=== PATIENT | male | born 1970 | race Caucasian/White ===

== ENCOUNTER 2020-10-01 15:32 | Emergency (ER) | payer OTHER ==
[2020-10-01] MEDS ORDERED: EPINEPHrine 1 MG/ML SDV IM ONE (15:33)
[2020-10-01] MEDS ORDERED: diphenhydrAMINE 50 MG/ML SDV IVPUSH ONE (15:34)
[2020-10-01] MEDS ORDERED: Sodium Chloride 0.9% 10 ML Syringe FLUSH PRN (15:34)
[2020-10-01] MEDS ORDERED: methylPREDNISolone Sodium Succinate 125 MG/2 ML SDV IVPUSH ONE (15:34)
[2020-10-01 16:11] VITALS: BP 170/111; PULSE 99
--- NOTE | 2020-10-01 16:46 | EDM.PDOC ---
Scribed by Renée Singh 10/01/20 [id number] for Ky Garcia MD ED HPI GENERAL MEDICAL PROBLEM - General Chief Complaint: Allergic Reaction Stated Complaint: ALLERIC REACTION Time Seen by Provider: 10/01/20 15:34 Source of Information: Reports: Patient, RN, RN Notes Reviewed History Limitations: Reports: No Limitations - History of Present Illness INITIAL COMMENTS - FREE TEXT/NARRATIVE: Patient presents to ED by POV from [facility] with complaint of allergic reaction, tightness and scratchy throat that began shortly after accidentally taking a bite of fish. Patient states that he ordered a Brad sandwich with corn beef and was accidentally served a walleye Brad. 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 Denies any difficulty breathing. Denies rash or hives. - Related Data Allergies Allergy/AdvReac Type Severity Reaction Status Date / Time Penicillins Allergy Swelling Verified 10/01/20 15:57 fish Allergy Anaphylactic Uncoded 10/01/20 15:57 Shock Home Meds: Home Meds traZODone 200 mg PO BEDTIME 11/05/15 [History] Past Medical History Respiratory History: Reports: Asthma Genitourinary History: Reports: None Musculoskeletal History: Reports: None Endocrine/Metabolic History: Reports: None Immunologic History: Reports: Other (See Below) (Food Allergy/Anaphylaxis: FISH) - Past Surgical History GI Surgical History: Reports: Appendectomy Male Surgical History: Reports: Other (See Below) Other Male Surgeries/Procedures: testicular tortion Endocrine Surgical History: Reports: Other (See Below) Other Endocrine Surgeries/Procedures: thyroid lump removed as child Other Musculoskeletal Surgeries/Procedures:: right shoulder and elbow surgery Social & Family History - Family History Family Medical History: No Pertinent Family History - Caffeine Use Caffeine Use: Reports: None - Living Situation & Occupation Living situation: Reports: , with Spouse ED ROS ALLERGIC REACTION - Review of Systems Review Of Systems: Comprehensive ROS is negative, except as noted in HPI. ED EXAM GENERAL NO PERIP PULSE - Physical Exam Exam: See Below Exam Limited By: No Limitations General Appearance: Alert, WD/WN, No Apparent Distress Eye Exam: Bilateral Eye: Normal Inspection (No swelling or redness) Ears: Normal External Exam, Normal Canal, Hearing Grossly Normal, Normal TMs Nose: Normal Inspection, Normal Mucosa, No Blood Throat/Mouth: Normal Inspection, Normal Lips, Normal Teeth, Normal Gums, Normal Oropharynx, Normal Voice, No Airway Compromise, Other (No swelling or angioedema) Head: Atraumatic, Normocephalic Neck: Normal Inspection, Supple, Non-Tender, Full Range of Motion. No: Lymphadenopathy (L), Lymphadenopathy (R) Respiratory/Chest: No Respiratory Distress, Lungs Clear, Normal Breath Sounds, No Accessory Muscle Use, Chest Non-Tender. No: Rales, Rhonchi, Wheezing Cardiovascular: Normal Peripheral Pulses, Regular Rate, Rhythm, No Edema, No Gallop, No JVD, No Murmur, No Rub GI/Abdominal: Normal Bowel Sounds, Soft, Non-Tender Extremities: Normal Inspection Neurological: Alert, Oriented, Normal Cognition, No Motor/Sensory Deficits Psychiatric: Normal Affect, Normal Mood Skin Exam: Warm, Dry, Intact, Normal Color, No Rash Course - Vital Signs Last Recorded V/S: Last Vital Signs Temp 99 F 10/01/20 15:32 Pulse 99 10/01/20 15:32 Resp 20 10/01/20 15:32 BP 170/111 H 10/01/20 15:32 Pulse Ox 96 10/01/20 15:32 - Orders/Labs/Meds Orders: Active Orders 24 hr Category Date Time Status Peripheral IV Care [RC] . DIRECTED Care 10/01/20 15:34 Active Sodium Chloride 0.9% [Saline Flush] Med 10/01/20 15:34 Active 10 ml FLUSH ASDIRECTED PRN Peripheral IV Insertion Adult [OM.PC] Stat Oth 10/01/20 15:34 Ordered Medication Orders Sodium Chloride (Sodium Chloride 0.9% 10 Ml Syringe) 10 ml FLUSH ASDIRECTED PRN PRN Reason: Keep Vein Open Last Admin: 10/01/20 15:34 Dose: 10 ml Documented by: ANYA Meds: Medications Generic Name Dose Route Start Last Admin Trade Name Freq PRN Reason Stop Dose Admin Sodium Chloride 10 ml 10/01/20 15:34 10/01/20 15:34 Sodium Chloride 0.9% 10 Ml Syringe FLUSH 10 ml ASDIRECTED PRN Administration Keep Vein Open Discontinued Medications Generic Name Dose Route Start Last Admin Trade Name Freq PRN Reason Stop Dose Admin Diphenhydramine HCl 25 mg 10/01/20 15:34 10/01/20 15:40 Diphenhydramine 50 Mg/Ml Sdv IVPUSH 10/01/20 15:35 25 mg ONETIME ONE Administration Epinephrine HCl 0.3 mg 10/01/20 15:33 10/01/20 15:32 Epinephrine 1 Mg/Ml Sdv IM 10/01/20 15:34 0.3 mg ONETIME ONE Administration Methylprednisolone Sodium Succinate 125 mg 10/01/20 15:34 10/01/20 15:43 Methylprednisolone Sodium Succinate 125 Mg/2 Ml Sdv IVPUSH 10/01/20 15:35 125 mg ONETIME ONE Administration - Re-Assessments/Exams Free Text/Narrative Re-Assessment/Exam: 10/01/20 16:38 Pt feels completely resolved on reassessment. Departure - Departure Time of Disposition: 16:45 Disposition: Home, Self-Care 01 Condition: Good Clinical Impression: Food allergy - Discharge Information *PRESCRIPTION DRUG MONITORING PROGRAM REVIEWED*: Not Applicable *COPY OF PRESCRIPTION DRUG MONITORING REPORT IN PATIENT NASH: Not Applicable Instructions: Food Allergy Forms: ED Department Discharge Additional Instructions: Do eat fish! Return to ER if worse at any time. Sepsis Event Note (ED) - Focused Exam Vital Signs: Vital Signs Temp Pulse Resp BP Pulse Ox 10/01/20 15:32 99 F 99 20 170/111 H 96 - My Orders Last 24 Hours: My Active Orders 10/01/20 15:34 Peripheral IV Care [RC] . DIRECTED Sodium Chloride 0.9% [Saline Flush] 10 ml FLUSH ASDIRECTED PRN Peripheral IV Insertion Adult [OM.PC] Stat - Assessment/Plan Last 24 Hours: My Active Orders 10/01/20 15:34 Peripheral IV Care [RC] . DIRECTED Sodium Chloride 0.9% [Saline Flush] 10 ml FLUSH ASDIRECTED PRN Peripheral IV Insertion Adult [OM.PC] Stat I have read and agree with the documentation that has been completed regarding this visit. By signing this record, I attest that the documentation was co mpleted in my physical presence and is an accurate record of the encounter.
== END 2020-10-01 17:18 | disposition home or self-care (01) ==
LOC: DL.ED 15:32
DX: T78.1XXA Other adverse food reactions, not elsewhere classified, initial encounter (principal); J45.909 Unspecified asthma, uncomplicated; Z88.0 Allergy status to penicillin; Z91.013 Allergy to seafood
CPT/HCPCS: 96374; 96375; 99283; J0171; J1200; J2930; 96372

== ENCOUNTER 2022-01-02 00:52 | Emergency (ER) | payer OTHER ==
[2022-01-02] MEDS ORDERED: Diphtheria,Pertussis(Acell),Tetanus Vaccine 0.5 ML Syringe IM ONE (00:58)
[2022-01-02] MEDS ORDERED: Bacitracin Oint 1 GM U/D Packet TOP ONE (00:58)
[2022-01-02] MEDS ORDERED: Lidocaine 1% 5 ML VIAL INJECT ONE (00:59)
[2022-01-02 01:24] VITALS: BP 127/72; PULSE 80
== END 2022-01-02 01:30 | disposition home or self-care (01) ==
LOC: DL.ED 00:52
DX: S61.422A Laceration with foreign body of left hand, initial encounter (principal); Z23 Encounter for immunization; Z88.0 Allergy status to penicillin; Z91.013 Allergy to seafood; Z90.49 Acquired absence of other specified parts of digestive tract; W26.8XXA Contact with other sharp object(s), not elsewhere classified, initial encounter
CPT/HCPCS: 12002; 90471; 90715; 99282-25